=== PATIENT | female | born 1990 | race Caucasian/White ===

== ENCOUNTER → 2017-12-05 | Outpatient (CLI) | payer BC ==
[2017-12-05 13:32] LABS: BASO % 0.2 %; BASO ABS # 0.02 K/uL (0-0.2); EOS % 0.6 %; EOS ABS # 0.05 K/uL (0-0.5); HEMATOCRIT 35.9 % (37-47); HEMOGLOBIN 12.4 g/dL (12.0-16.0); IG# 0.02 K/uL (0.00-0.02); LYMPH % 24.9 %; LYMPH ABS # 2.12 K/uL (1.2-3.4); MEAN CELL VOLUME 85.1 fL (80-100); MEAN CORPUSCULAR HEMOGLOBIN 29.4 pg (25-34); MEAN CORPUSCULAR HGB CONC 34.5 g/dl (32-36); MEAN PLATELET VOLUME 9.9 fL (7.4-10.4); MONO % 2.6 %; MONO ABS # 0.22 K/uL (0.11-0.59); NEUT % 71.5 %; NEUT ABS # 6.07 K/uL (1.4-6.5); PLATELET COUNT 249 K/uL (130-400); RED CELL DISTRIBUTION WIDTH CV 13.1 % (11.5-14.5); RED CELL DISTRIBUTION WIDTH SD 40.1 fL (36.4-46.3)
== END | disposition home or self-care (01) ==
LOC: C.LAB 10:40
PROVIDERS: ATTEND Obstetrics & Gynecology
DX: Z34.82 Encounter for supervision of other normal pregnancy, second trimester (principal); Z3A.00 Weeks of gestation of pregnancy not specified